=== PATIENT | female | born 1975 | race Caucasian/White ===

== ENCOUNTER 2017-05-11 07:22 | Day surgery (SDC) | payer OTHER ==
[2017-05-08 17:10] VITALS: BMI 39.1
[2017-05-11] MEDS ORDERED: MIDAZOLAM HCL 2 MG/2 ML SINGLE DOSE VIAL ONE (08:04)
[2017-05-11] MEDS ORDERED: LEVOFLOXACIN 500 MG IVPB 500 MG/100 ML BAG IVPB ONE (09:03)
[2017-05-11] MEDS ORDERED: LIDOCAINE HCL/PF 2% SDV 5ML VIAL ONE (09:22)
[2017-05-11] MEDS ORDERED: oxyCODONE HCL 5 MG TABLET PO PRN (10:05)
[2017-05-11] MEDS ORDERED: PROMETHAZINE HCL 25 MG/1 ML VIAL IVPUSH PRN (10:05)
[2017-05-11] MEDS ORDERED: ONDANSETRON 4 MG/2 ML VIAL IVPUSH PRN (10:05)
--- NOTE | 2017-05-11 10:09 | OP ---
Operative Note - Note: Operative Date: 05/11/17 Pre-Operative Diagnosis: gross hematuria/left ureteral stone/left hydronephrosis Operation: cystoscopy/bilateral retrograde pyelogram/left ureteroscopy Findings: passed left ureteral stone/no evidence of neoplastic process Surgeon: Vinod Guerrero Anesthesia: General
[2017-05-11] MEDS ORDERED: LACTATED RINGERS SOLUTION 1,000 ML IV SCH (10:15)
[2017-05-11 11:01] VITALS: TEMP 98.5
[2017-05-11] MEDS ORDERED: oxyCODONE HCL 5 MG TABLET ONE (11:16)
--- NOTE | 2017-05-11 11:32 | OP ---
DATE OF OPERATION: 05/11/2017 PREOPERATIVE DIAGNOSIS: Gross hematuria with left ureteral stone. PROCEDURE: Cystoscopy, bilateral retrograde pyelogram, left ureteroscopy. SURGEON: Pooja Boswell MD ANESTHESIA: General. POSTOPERATIVE DIAGNOSIS: Gross hematuria with left ureteral stone. DESCRIPTION OF PROCEDURE: The patient has a history of gross hematuria. A CAT scan revealed a distal left ureteral stone. The patient describes bilateral renal colic. She denies any passage of stone. The patient had 2 episodes of gross hematuria not associated with pain. The patient had a negative urine cytologies and an office cystoscopy, which was unremarkable. The patient is brought in the operating room today for a bilateral retrograde pyelogram. The patient was placed in the supine position on the operating room table. General anesthesia was administered as was Levaquin 500 mg intravenously. The patient was then placed in the dorsal lithotomy position and prepped and draped in the usual sterile manner. Cystoscopy was performed. 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 The urine ureteral orifice appears normal. The left ureteral orifice appears edematous and abnormal. An open-ended catheter is attempted to be placed in the distal ureteral orifice, however, without success. Ureteroscopy was utilized, and with ureteroscopic guidance, a wire was passed into the left ureteral orifice. An open-ended catheter is then placed over the wire. It must be noted there was evidence of edema in the distal ureteral segment consistent with a recent stone passage. There were also small fragments less than 0.5 mm of stone debris noted. A retrograde pyelogram shows no evidence of filling defect or hydronephrosis. At this point, the open-ended catheter is removed. The right ureteral orifice is then intubated, and a retrograde pyelogram was performed, which is normal on the right side. No evidence of obstructing stone or neoplasm is noted bilaterally. There is evidence of a recent stone passage as seen by the edema of the left ureteral orifice. The patient tolerated the procedure very well. No complications were noted. DISPOSITION: Patient to recovery room. POOJA BOSWELL M.D. [id number]
[2017-05-11 12:23] VITALS: BP 144/80; PULSE 79
== END 2017-05-11 12:23 | disposition home or self-care (01) ==
LOC: JASU-SURG 07:22
PROVIDERS: ATTEND Urology
PROC: BT14ZZZ Fluoroscopy of Kidneys, Ureters and Bladder (ICD-10-PCS; principal; 2017-05-11 09:00)
DX: N20.1 Calculus of ureter (principal); R31.0 Gross hematuria
CPT/HCPCS: 76000-TC; 84703; 94760

== ENCOUNTER 2017-12-28 12:43 | Day surgery (SDC) | payer OTHER ==
[2017-12-28 13:12] VITALS: TEMP 97.7
[2017-12-28] MEDS ORDERED: MIDAZOLAM HCL 2 MG/2 ML SINGLE DOSE VIAL ONE (13:30)
--- NOTE | 2017-12-28 15:26 | OP ---
Operative Note - Note: Operative Date: 12/28/17 Pre-Operative Diagnosis: Left kidney stone Operation: Left ESWL Findings: 6mm lower pole left kidney stone Post-Operative Diagnosis: Same as Pre-op Surgeon: Vinod Guerrero (no complication) Anesthesia: Fractional
[2017-12-28 16:37] VITALS: BP 113/77; PULSE 70
--- NOTE | 2017-12-28 23:43 | OP ---
DATE OF OPERATION: 12/28/2017 PREOPERATIVE DIAGNOSIS: Left renal stone. POSTOPERATIVE DIAGNOSIS: Left renal stone. PROCEDURE: Left extracorporeal shock wave lithotripsy. ATTENDING: Pooja Guerrero M.D. ANESTHESIA: Fractional. OPERATION: Patient was brought in the operating room, placed in a supine position on the operating room table. Ultrasonography and fluoroscopy were performed. A 6-mm left lower pole stone was identified. At this point, fractional anesthesia and preoperative antibiotics were administered. Shock wave lithotripsy was then started. 3000 impulses at 18 joules of power was administered to the stone with excellent fragmentation under real time fluoroscopy and ultrasonography. There were no complications noted. The patient tolerated the procedure very well. DISPOSITION: Disposition of the patient to the recovery room. POOJA BOSWELL M.D. [id number]
== END 2017-12-28 16:15 | disposition home or self-care (01) ==
LOC: JASU-SURG 12:43
PROVIDERS: ATTEND Urology
PROC: 0TF4XZZ Fragmentation in Left Kidney Pelvis, External Approach (ICD-10-PCS; principal; 2017-12-28 13:15)
DX: N20.0 Calculus of kidney (principal)
CPT/HCPCS: 84703

== ENCOUNTER 2019-02-06 20:07 | Observation (INO) | payer OTHER ==
[2019-02-06 20:18] VITALS: BMI 39.1
--- NOTE | 2019-02-06 21:06 | PDOC ---
History of Present Illness - General Chief Complaint: Chest Pain Stated Complaint: CHEST PAIN Time Seen by Provider: 02/06/19 21:05 History Source: Patient Exam Limitations: No Limitations - History of Present Illness Initial Comments: 02/06/19 21:45 43 yo F pmh SLE, RA, IBS, h/o renal stones presenting with 2 days of constant nonradiating left sided chest pain and a week of left flank pain with nausea and chills. Chest pain started yesterday morning resolves at night and comes back in the morning; improves with ibuprofen. Denies SOB. Endorses some mild positional lightheadedness. Left flank pain similar to her prior renal stones which have been treated w/ lithotripsy. Endorsing a week of chills and diaphoresis. Denies dysuria, other abd pain, vomiting. No trauma. PO tolerant. PMH as above; h/o sle nephritis does not take her meds for stated conditions LMP 2 wks ago, not sexually active NKDA no PCP Past History - Past Medical History Allergies/Adverse Reactions: Allergies Allergy/AdvReac Type Severity Reaction Status Date / Time No Known Allergies Allergy Verified 12/28/17 13:17 Home Medications: Ambulatory Orders Sertraline HCl [Zoloft] 100 mg PO DAILY 05/08/17 Ibuprofen 600 mg PO PRN PRN 12/28/17 Anemia: No Asthma: No Cancer: No Cardiac Disorders: No CVA: No COPD: No CHF: No Dementia: No Diabetes: No GI Disorders: Yes (IBS) Disorders: No HTN: No Hypercholesterolemia: No Liver Disease: No Seizures: No Thyroid Disease: No - Surgical History Abdominal Surgery: No Appendectomy: No Cardiac Surgery: No Cholecystectomy: No Lung Surgery: No Neurologic Surgery: No Orthopedic Surgery: No - Immunization History Immunization Up to Date: Yes - Suicide/Smoking/Psychosocial Hx Smoking Status: Yes Smoking History: Former smoker Years of Tobacco Use: 21 Have you smoked in the past 12 months: Yes Number of Cigarettes Smoked Daily: 5 If you are a former smoker, when did you quit?: Thursday Information on smoking cessation initiated: Yes Hx Alcohol Use: No Drug/Substance Use Hx: No Substance Use Type: None Hx Substance Use Treatment: No *Physical Exam - Vital Signs Last Vital Signs Temp Pulse Resp BP Pulse Ox 97.4 F L 93 H 20 176/104 H 96 02/06/19 20:11 02/06/19 20:11 02/06/19 20:11 02/06/19 20:11 02/06/19 20:11 - Physical Exam Comments: 02/06/19 21:45 GEN: Moderately distressed from pain, nontoxic appearing HEENT: NC/AT, EOMI, PERRLA, CN II-XII intact. MMM CV: + reproducible pain on palpation of left chest; no fractures or deformities. S1/S2, RRR, no m/r/g LUNG: CTAB, no wheezes, crackles, rales, rhonchi. GI: +CVAT on left side. Endorses left flank pain w/o guarding, rebound, or grimacing; otherwise soft, ndnt, +BS. no masses. EXTREMITIES: 2+ distal pulses. No LE edema. No obvious deformities of all extremities. NEURO: AAOx3, moving all extremities well. ED Treatment Course - LABORATORY CBC & Chemistry Diagram: 02/06/19 21:20 02/06/19 21:20 Medical Decision Making - Medical Decision Making 02/06/19 21:33 43 yo F with SLE, RA, IBS and h/o renal stones presenting with 2 days of reproducible nontraumatic chest pain that resolves at night and improved with ibuprofen and a week of left sided flank pain with nausea and chills which is similar to her previous episodes of renal stone. Exam significant for L CVAT and reproducible chest pain on palpation. DDx - costrochondritis, anxiety, ACS. Given pt's autoimmune hx and not on meds considered autoimmune pericarditis, Ao dissection, ACS but these are less likely given the symptomatology. UTI, pyelonephritis, renal stone. Chest pain and flank pain - CBC, CMP, cardiac - UA/UC, UPT - EKG, CXR - consider CT a/p - pain ctrl w/ tylenol given h/o sle nephritis 02/07/19 00:41 after receiving SLNTG, tylenol, and morphine - the patient was improved and BP dropped but reassessment found breakthrough pain despite morphine - added toradol - CT found no renal or bladder stones or obstructive uropathy. It did find mesenteric haziness that is possibly mesenteritis or edema. 02/07/19 00:55 Repeat BP 133/85 //admitted to medicine *DC/Admit/Observation/Transfer Diagnosis at time of Disposition: Flank pain, Atypical chest pain - Discharge Dispostion Decision to Admit order: Yes - Referrals - Patient Instructions - Post Discharge Activity
[2019-02-06] MEDS ORDERED: ACETAMINOPHEN 1000 MG/100 ML VIAL (NON FORMULARY) IVPB ONE (21:21)
[2019-02-06] MEDS ORDERED: ACETAMINOPHEN INJECTION 100 ML IVPB ONE (21:28)
[2019-02-06 21:49] LABS: BASO % 0.6 % (0-2.0); EOS % 1.8 % (0-4.5); HEMATOCRIT 43.2 % (32.4-45.2); HEMOGLOBIN 14.3 GM/dL (10.7-15.3); LYMPH % 19.6 % (8-40); MCH 25.9 pg (25.7-33.7); MCHC 33.1 g/dl (32.0-36.0); MEAN CELL VOLUME 78.2 fl (80-96); MONO % 6.9 % (3.8-10.2); NEUT % 71.1 % (42.8-82.8); PLATELET COUNT 158 K/MM3 (134-434); RBC 5.52 M/mm3 (3.60-5.2); RDW 15.4 % (11.6-15.6); WHITE BLOOD COUNT 11.5 K/mm3 (4.0-10.0)
[2019-02-06] MEDS ORDERED: NITROGLYCERIN SUBLINGUAL 1/150 0.4 MG TAB SL ONE ×2 (22:00→22:02)
[2019-02-06] MEDS ORDERED: morphine CARPU-JECT 2 MG/1 ML DISP.SYRIN IVPUSH ONE (22:01)
[2019-02-06] MEDS ORDERED: ASPIRIN 81 MG CHEWABLE TABLETS PO ONE (22:02)
[2019-02-06] MEDS ORDERED: ASPIRIN 81 MG CHEWABLE TABLETS ONE (22:07)
[2019-02-06] MEDS ORDERED: LOSARTAN POTASSIUM 50 MG TABLET (FP) PO ONE (22:07)
[2019-02-06] MEDS ORDERED: MORPHINE SULFATE 2 MG/ML VIAL ONE (22:07)
[2019-02-06] MEDS ORDERED: LOSARTAN POTASSIUM 50 MG TABLET (FP) ONE (22:08)
[2019-02-06] MEDS ORDERED: NITROGLYCERIN SUBLINGUAL 1/150 0.4 MG TAB ONE (22:08)
[2019-02-06 22:30] LABS: ALBUMIN 4.2 g/dl (3.4-5.0); BILIRUBIN,TOTAL 0.4 mg/dL (0.2-1); BLOOD UREA NITROGEN 10.1 mg/dL (7-18); CALCIUM 9.2 mg/dL (8.5-10.1); CREATININE 0.7 mg/dL (0.55-1.3); POTASSIUM 3.7 mmol/L (3.5-5.1); TOT PROT 8.4 g/dl (6.4-8.2)
[2019-02-06 22:57] LABS: EPI CELLS 4.2 /HPF (0-5/HPF); HYALINE CASTS 6 /lpf (0-8); URINE APPEARANCE CLEAR; URINE BILIRUBIN NEGATIVE (NEGATIVE); URINE COLOR YELLOW; URINE GLUCOSE (UA) NEGATIVE (NEGATIVE); URINE KETONE TRACE (NEGATIVE); URINE LEUK ESTERASE NEGATIVE (NEGATIVE); URINE NITRITE NEGATIVE (NEGATIVE); URINE PROTEIN 1+ (NEGATIVE); URINE RBC 7 /hpf (0-4); URINE WBC 1 /hpf (0-5)
--- NOTE | 2019-02-06 23:46 | PDOC ---
Documentation entered by Kareem Bocanegra SCRIBE, acting as scribe for Kathryn Padilla MD. Kathryn Padilla MD: This documentation has been prepared by the Daljit howard Daniel, SCRIBE, under my direction and personally reviewed by me in its entirety. I confirm that the documentation accurately reflects all work, treatment, procedures, and medical decision making performed by me. Attending Attestation - Resident Resident Name: Shahriar Chavez - ED Attending Attestation I have performed the following: I have examined & evaluated the patient, The case was reviewed & discussed with the resident, I agree w/resident's findings & plan - HPI HPI: 02/06/19 21:27 The patient is a 43 year old female with a past medical history of lupus, IBS, kidney stones, and rheumatoid arthritis here today for evaluation of chest pain and flank pain. The patient reports that her chest pain started 2 days ago and describes it as left sided, crampy, and alleviated with ibuprofen and sleep. She also notes left flank pain which she states feels like her kidney stones, nausea, diaphoresis, and 6 episodes of loose stool. Patient denies headache, lightheadedness. Denies fever, chills. Denies shortness of breath. Denies vomiting. Allergies: NKA Family history: HTN - Physicial Exam PE: 02/06/19 21:27 GENERAL: Awake, alert, and fully oriented, in no acute distress HEAD: No signs of trauma EYES: PERRLA, EOMI, sclera anicteric, conjunctiva clear ENT: Auricles normal inspection, hearing grossly normal, nares patent, oropharynx clear without exudates. Moist mucosa NECK: Normal ROM, supple, no lymphadenopathy, JVD, or masses LUNGS: Breath sounds equal, clear to auscultation bilaterally. No wheezes, and no crackles HEART: Regular rate and rhythm, normal S1 and S2, no murmurs, rubs or gallops ABDOMEN: Soft, nontender, normoactive bowel sounds. No guarding, no rebound. No masses EXTREMITIES: Normal range of motion, no edema. No clubbing or cyanosis. No cords, erythema, or tenderness NEUROLOGICAL: Cranial nerves II through XII grossly intact. Normal speech, normal gait SKIN: Warm, Dry, normal turgor, no rashes or lesions noted. - Medical Decision Making 02/06/19 22:06 right arm BP is 173/113 left arm BP is 191/110 Pt given 1SL NTG; we will repeat BP; she is getting cxr ofirmev given; pt will receive morphine 2mg and another SLNTG as well as 02/06/19 22:09 CXR shows normal heart and mediastinum. 02/06/19 23:36 Pt feeling vastly improved with morphine and meds. 02/06/19 23:49 Pt has 140s over 80s 02/07/19 00:17 Patient Name: SHON GAYLE THIS IS A PRELIMINARY REPORT FROM [facility] DATE OF SERVICE: 2019-02-06 23:20:31 IMAGES: 518 EXAM: CT ABDOMEN AND PELVIS WITHOUT CONTRAST No nephrolithiasis, ureterolithiasis or obstructive uropathy. No bladder calculi. Faint haziness central mesenteric fat, possibly mesenteritis or edema. Unremarkable pancreas and gallbladder. No bowel obstruction, colitis, or free air. Normal appendix. Hepatosplenomegaly. Steatosis liver. Negligible physiologic free fluid cul-de-sac. Small umbilical and left inguinal region hernias containing fat. Small bone island S1. 02/07/19 03:23 Pt continued to have abd pain and left flank pain. SHe will be admmitted as she has abd pain and elevated WBC and she has CT that shows mesenteritis. Pt also has fat hernias that may be causing pain. Heart Score/ECG Review - ECG Intrepretation Rhythm: Regular Rhythm - [place]: Normal - P and CA Prominent R with upright T in V1 (true posterior IL): No Delta Wave(s) Present: No WPW: No - ST and T Early Repolarization: No Non Specific ST-T Wave changes: No Flattened T Waves: No Prolonged Q-T Interval: No
[2019-02-07] MEDS ORDERED: KETOROLAC TROMETHAMINE 30 MG/1 ML VIAL IVPUSH ONE (00:07)
[2019-02-07] MEDS ORDERED: KETOROLAC TROMETHAMINE 30 MG/1 ML VIAL ONE (00:20)
[2019-02-07] MEDS ORDERED: ONDANSETRON 4 MG/2 ML VIAL IVPUSH PRN (01:35)
[2019-02-07] MEDS ORDERED: ACETAMINOPHEN 325 MG TABLET (FP) PO PRN (01:35)
--- NOTE | 2019-02-07 02:00 | PN ---
Teaching Attending Note Name of Resident: Elizabeth Lerma ATTENDING PHYSICIAN STATEMENT I saw and evaluated the patient. I reviewed the resident's note and discussed the case with the resident. I agree with the resident's findings and plan as documented. Seen and examined; please refer to resident note for further historical information. Briefly, this is a 43 y/o female presenting to the ER with a CC of flank pain, s/p recent lithotripsy fo 6mm stone with Dr. Guerrero. She is afebrile and hemodynamically stable; UA is negative, mild leukocytosis, normal chemistry, no fever. Initially hypertensive but I am told she went hypotensive after morphine and nitro were given (not documented). Has not followed with MD in years; used to see Dr. Velasquez for her lupus. CT shows slight mesenteritis vs. edema along with hepatosplenomegaly but she has normal LFTs. VS, labs, imaging reviewed NAD, AAO, resting in bed NC AT EOMI PERRLA RRR s1/2 Flank pain to percussion, ND +BS CN2-12 wnl, no fnd EKG reviewed CXR reviewed CT prelim reviewed; final report pending. Per prelim, she has edema vs. mesenteritis located centrally alongside hsm CXR reviewed ASSESSMENT AND PLAN: Patient presents with flank pain and ?chest pain; negative workup aside from WBC 11 and mesenteritis vs. edema with hepatosplenomegaly in a lupus patient. # Flank Pain -Similar to her hx renal stones but no stones on exam, negative UA. # Chest Pain -EKG reviewed; monitor tele. Troponin negative; can repeat. Echo ordered # Leukocytosis -Given 1g empiric ceftriaxone; could be reactive. Cultures, etc. # Mesenteritis vs. Edema -Checking lactate and CPK; sclerosing mesenteritis can be seen in patients with AI disease such as Lupus but these imaging findings are subtle compared. Slight association with IgG4 so can consider checking; no obstruction on CT. Followup final report. # Hepatosplenomegaly -Followup final CT report; consider GI consultation. Check hepatitis pannel # Hx Lupus -Saw Dr. Velasquez in 2011; reviewed. Negative CORONA in past, no current meds. No signs of nephritis, no signs of vasculitis. Checking ESR/CRP. Monitor.
--- NOTE | 2019-02-07 02:12 | HP ---
CHIEF COMPLAINT: Chest pain and L flank pain PCP: None HISTORY OF PRESENT ILLNESS: Patient is a 43 year old female with PMH of SLE, rheumatoid arthritis, IBS, uncontrolled HTN, kidney stones, depression who presents today with L flank pain and chest pain. She reports that her chest pain is substernal and began 2 days ago. It is constant, stabbing, and non-radiating, but alleviated with ibuprofen and sleep. She denies any associated palpitations or SOB. Her flank pain began 2 weeks ago and has been associated with nausea, diaphoresis, chills , and urinary frequency and urgency. She denies any abdominal pain, vomiting, hematuria, or leg swelling. Pt has had kidney stones in the past, treated with lithotripsy x2. Last time was one year ago. She notes that her current symptoms feel similar to her prior stones. Of note, pt has been lost to follow up for her chronic conditions. She was previously on steroids, cellcept, and plaquenil for her SLE as well as losartan for HTN. However, she no longer sees any of her physicians and does not take any medications except Zoloft for depression. Pt states that she has not had an SLE or RA outbreak for several years. Her outbreaks typically include swelling and aching of her hands, feet, and joints, diaphoresis, fatigue, and diffuse rash. ER course was notable for: (1) CT abd: no nephrolithiasis, ureterolithiasis, bladder calculi; faint haziness central mesenteric fat, possible mesenteritis or edema (2) EKG: NSR, no ischemic changes (3) BP: 176/104, given 100mg losartan, asa 162mg, and nitro SL x2 --> BP: 134/ 83 and CP resolved Recent Travel: Denies PAST MEDICAL HISTORY: SLE Rheumatoid arthritis IBS Renal stones with lithotripsy x2 Depression PAST SURGICAL HISTORY: D&C Social History: Smoking: denies Alcohol: denies Drugs: denies Family History: Father: DM, gastric cancer Mother: HTN Allergies No Known Allergies Allergy (Verified 12/28/17 13:17) HOME MEDICATIONS: Home Medications Medication Instructions Recorded Sertraline HCl [Zoloft] 100 mg PO DAILY 05/08/17 Ibuprofen 600 mg PO PRN PRN 12/28/17 REVIEW OF SYSTEMS CONSTITUTIONAL: diaphoresis, chills Absent: fever, generalized weakness, malaise, loss of appetite, weight change HEENT: Absent: rhinorrhea, nasal congestion, throat pain, throat swelling, difficulty swallowing, mouth swelling, ear pain, eye pain, visual changes CARDIOVASCULAR: chest pain Absent: syncope, palpitations, irregular heart rate, lightheadedness, peripheral edema RESPIRATORY: Absent: cough, shortness of breath, dyspnea with exertion, orthopnea, wheezing, stridor, hemoptysis GASTROINTESTINAL: nausea Absent: abdominal pain, abdominal distension, vomiting, diarrhea, constipation, melena, hematochezia GENITOURINARY: frequency, urgency, flank pain Absent: dysuria, hesitancy, hematuria, genital pain MUSCULOSKELETAL: Absent: myalgia, arthralgia, joint swelling, back pain, neck pain SKIN: Absent: rash, itching, pallor HEMATOLOGIC/IMMUNOLOGIC: Absent: easy bleeding, easy bruising, lymphadenopathy, frequent infections ENDOCRINE: Absent: unexplained weight gain, unexplained weight loss, heat intolerance, cold intolerance NEUROLOGIC: Absent: headache, focal weakness or paresthesias, dizziness, unsteady gait, seizure, mental status changes, bladder or bowel incontinence PSYCHIATRIC: Absent: anxiety, depression, suicidal or homicidal ideation, hallucinations. PHYSICAL EXAMINATION Vital Signs - 24 hr 02/06/19 02/07/19 20:11 00:55 Temperature 97.4 F L Pulse Rate 93 H Pulse Rate [ 72 Left] Respiratory 20 15 Rate Blood Pressure 176/104 H Blood Pressure 133/85 [Left Arm] O2 Sat by Pulse 96 99 Oximetry (%) GENERAL: Awake, alert, and fully oriented, in no acute distress. HEAD: Normal with no signs of trauma. EYES: Pupils equal, round and reactive to light, extraocular movements intact, sclera anicteric, conjunctiva clear. No lid lag. EARS, NOSE, THROAT: Ears normal, nares patent, oropharynx clear without exudates. Moist mucous membranes. NECK: Normal range of motion, supple without lymphadenopathy, JVD, or masses. LUNGS: Breath sounds equal, clear to auscultation bilaterally. No wheezes, and no crackles. No accessory muscle use. HEART: Regular rate and rhythm, normal S1 and S2 without murmur, rub or gallop. Tenderness to palpation in substernal area. ABDOMEN: Mild left-sided tenderness, soft, not distended, normoactive bowel sounds, no guarding, no rebound, no masses. No hepatomegaly or splenomegaly. MUSCULOSKELETAL: Normal range of motion at all joints. No bony deformities or tenderness. Left CVA tenderness. UPPER EXTREMITIES: 2+ pulses, warm, well-perfused. No cyanosis. No clubbing. No peripheral edema. LOWER EXTREMITIES: 2+ pulses, warm, well-perfused. No calf tenderness. No peripheral edema. NEUROLOGICAL: Cranial nerves II-XII intact. Normal speech. Normal gait. PSYCHIATRIC: Cooperative. Good eye contact. Appropriate mood and affect. SKIN: Warm, dry, normal turgor, no rashes or lesions noted, normal capillary refill. Laboratory Results - last 24 hr CBC, BMP 02/06/19 21:20 02/06/19 21:20 ASSESSMENT/PLAN: Patient is a 43 year old female with PMH of SLE, rheumatoid arthritis, IBS, uncontrolled HTN, kidney stones, depression who presents today with L flank pain and chest pain. #Rule out ACS EKG: NSR, no ischemic changes Trending serial troponins - neg Given 0.4mg nitro SL x2, 162mg asa, morphine in ED, pain resolved Echo ordered, f/u in am Cont IV tylenol Q4H prn for pain control and zofran Q6H prn for nausea #Left flank pain Sx similar to her past renal stones CT abd: no nephrolithiasis, ureterolithiasis, bladder calculi; faint haziness central mesenteric fat, possible mesenteritis or edema UA: 1+ protein, trace ketones, otherwise unremarkable F/u urine cx Cont IV tylenol Q4H prn for pain control and zofran Q6H prn for nausea #Leukocytosis Possibly reactive, pt is afebrile with no other signs of infection F/u urine cx Given 1gm cefriaxone empirically #Mesenteritis F/u final CT abd report F/u lactate and CPK #SLE/RA Saw Dr. Velasquez in the past F/u ESR and CRP In the past, took steroids, plaquenil, cellcept. Consider restarting #HTN Given 100mg losartan in ED Cont at 50mg losartan daily and monitor BP #FEN No standing fluids for now Regular diet #DVT ppx Heparin SQ TID #Dispo Place on obs overnight Visit type - Emergency Visit Emergency Visit: Yes ED Registration Date: 02/07/19 Care time: The patient presented to the Emergency Department on the above date and was hospitalized for further evaluation of their emergent condition. - New Patient This patient is new to me today: Yes Date on this admission: 02/08/19 - Critical Care Critical Care patient: No ATTENDING PHYSICIAN STATEMENT I saw and evaluated the patient. I reviewed the resident's note and discussed the case with the resident. I agree with the resident's findings and plan as documented. SUBJECTIVE: OBJECTIVE: ASSESSMENT AND PLAN:
[2019-02-07] MEDS: HEPARIN NA (PORCINE) 5,000 UNITS/ML 1ML VIAL SQ SCH ×2 (06:47→14:30)
[2019-02-07 06:51] LABS: BASO % 0.6 % (0-2.0); HEMATOCRIT 41.2 % (32.4-45.2); HEMOGLOBIN 13.9 GM/dL (10.7-15.3); LYMPH % 26.8 % (8-40); MCH 26.5 pg (25.7-33.7); MCHC 33.7 g/dl (32.0-36.0); MEAN CELL VOLUME 78.7 fl (80-96); MEAN PLT VOLUME 8.3 fl (7.5-11.1); MONO % 6.8 % (3.8-10.2); NEUT % 62.8 % (42.8-82.8); PLATELET COUNT 132 K/MM3 (134-434); RBC 5.24 M/mm3 (3.60-5.2); RDW 15.3 % (11.6-15.6); WHITE BLOOD COUNT 9.8 K/mm3 (4.0-10.0)
[2019-02-07] MEDS ORDERED: ACETAMINOPHEN 325 MG TABLET (FP) ONE (06:51)
[2019-02-07 07:24] LABS: ALBUMIN 3.9 g/dl (3.4-5.0); BILIRUBIN,TOTAL 0.5 mg/dL (0.2-1); BLOOD UREA NITROGEN 8.8 mg/dL (7-18); CALCIUM 8.8 mg/dL (8.5-10.1); CREATININE 0.6 mg/dL (0.55-1.3); POTASSIUM 3.7 mmol/L (3.5-5.1); TOT PROT 7.9 g/dl (6.4-8.2)
[2019-02-07] MEDS ORDERED: LOSARTAN POTASSIUM 50 MG TABLET (FP) PO SCH (10:00)
--- NOTE | 2019-02-07 11:15 | EKG ---
Test Reason : Blood Pressure : / mmHG Vent. Rate : 080 BPM Atrial Rate : 080 BPM P-R Int : 146 ms QRS Dur : 078 ms QT Int : 394 ms P-R-T Axes : 030 007 032 degrees QTc Int : 454 ms NORMAL SINUS RHYTHM NORMAL ECG WHEN COMPARED WITH ECG OF 27-JUN-2011 14:47, NO SIGNIFICANT CHANGE WAS FOUND Confirmed by JANNIE GOODMAN MD ([id number]) on 02/07/2019 11:15:29 AM Referred By: Confirmed By:JANNIE GOODMAN MD
--- NOTE | 2019-02-07 11:41 | PN ---
Teaching Attending Note Name of Resident: Terry Valderrama ATTENDING PHYSICIAN STATEMENT I saw and evaluated the patient. I reviewed the resident's note and discussed the case with the resident. I agree with the resident's findings and plan as documented. SUBJECTIVE:some mild L flank tenderness but overall improved since arrival. develop CP after having L flank pain. had similar pain in the past when she had kidney stones. had lithotripsy in the past. has been off all her medications for 2-3years due to insurance issues. denies Cp, SOB, fever, chills, N/V/C/D, or hematuria OBJECTIVE: Last Vital Signs Temp Pulse Resp BP Pulse Ox 97.5 F L 71 18 136/85 96 02/07/19 10:18 02/07/19 10:18 02/07/19 10:18 02/07/19 10:18 02/07/19 10:18 General NAD CV S1 S2 RRR no murmur/rub/gallop Lungs CTA B/L no wheezing/rlaes/rhonchi Abdomen soft NT/ND + L CVA tenderness no flank pain obese Extremities no pedal edema ASSESSMENT AND PLAN: 43yo F wtih PMH SLE, RA, ibs, nephrolithaosis and depression presented to the ER with L flank pain and CP and was found ot have HTN urgency 1. L flank pain- pain mostly resolved and controlled with tylenol. CT imaging negative for nephrotlithasis or other acute pathology. pain has mostly resolved at this time and controlled with tylenol. advised dietary changes and increasing water intake 2. CP-liekly compensatory pain vs due to HTN. cardiac enzymes neg x2. echo done. will f/u results 3. HTN urgency- given losartan and now controlled. recommended dietary changes and continuation of medications 4. SLE- long converstaion about need to f/u and re-start medications. hesitant to start them at this time as pt should first establish primary care and have a check up before starting these agents. 5, d/c home if echo is normal.
--- NOTE | 2019-02-07 12:23 | ECHO ---
Name: SHON GAYLE Exam:Adult Echocardiogram Study Date: 02/07/2019 09:16 AM Age: 43 yrs Reason For Study: R/O ACS Height: 67 in Weight: 250 lb BSA: 2.2 m2 MMode/2D Measurements & Calculations IVSd: 0.84 cm Ao root diam: 2.7 cm LVIDd: 5.0 cm LA dimension: 3.7 cm LVIDs: 3.3 cm LVPWd: 0.79 cm EDV(Teich): 120.9 ml LVOT diam: 2.1 cm ESV(Teich): 43.7 ml Doppler Measurements & Calculations MV E max robert: 57.3 cm/sec Ao V2 max: 107.7 cm/sec MV A max robert: 64.7 cm/sec Ao max P.7 mmHg MV E/A: 0.89 Ao V2 mean: 80.1 cm/sec MV dec time: 0.22 sec Ao mean P.9 mmHg Ao V2 VTI: 23.1 cm LG(I,D): 2.0 cm2 AI P1/2t: 751.5 msec LG(V,D): 2.1 cm2 AI max robert: 412.3 cm/sec LV V1 max P.7 mmHg AI max P.0 mmHg LV V1 mean P.74 mmHg AI dec slope: 160.7 cm/sec2 LV V1 max: 64.5 cm/sec LV V1 mean: 38.8 cm/sec LV V1 VTI: 13.4 cm SV(LVOT): 46.3 ml TR max robert: 226.0 cm/sec TR max P.4 mmHg Med Peak E' Robert: 5.1 cm/sec Med E/e': 11.3 Lat Peak E' Robert: 7.9 cm/sec Lat E/e': 7.3 Procedure A complete two-dimensional transthoracic echocardiogram was performed (2D, M-mode, Doppler and color flow Doppler). Left Ventricle The left ventricle is normal in size. Left ventricular systolic function is normal. Ejection Fraction = 60- 65%. Grade I diastolic dysfunction, (abnormal relaxation pattern). Ratio E/E'= 11. No regional wall m otion abnormalities noted. Right Ventricle The right ventricle is normal size. The right ventricular systolic function is normal. Atria The left atrial size is normal. Right atrial size is normal. Mitral Valve The mitral valve is normal in structure and function. There is mild mitral regurgitation. Tricuspid Valve The tricuspid valve is normal in structure and function. No tricuspid regurgitation. Aortic Valve There is mild aortic sclerosis.;. Mild aortic regurgitation. Pulmonic Valve The pulmonic valve is not well visualized. Great Vessels The aortic root is normal size. Pericardium/Pleura There is no pericardial effusion. Interpretation Summary The left ventricle is normal in size. Left ventricular systolic function is normal. No regional wall motion abnormalities noted. Ejection Fraction = 60-65%. Grade I diastolic dysfunction, (abnormal relaxation pattern). Ratio E/E'= 11 The right ventricular systolic function is normal. The left atrial size is normal. Right atrial size is normal. There is mild mitral regurgitation. There is mild aortic sclerosis. Mild aortic regurgitation. There is no pericardial effusion. Previous study is not available for comparison Luke Vicente MD 02/07/2019 12:23 PM
[2019-02-07 14:18] VITALS: BP 147/106; PULSE 87; TEMP 98
--- NOTE | 2019-02-07 16:58 | DS ---
Physical Exam: SUBJECTIVE: 43 y/o F w PMH of SLE, RA, IBS, HTN, nephrolithiais, major depression, whom presented to ED with LEFT flank pain and chest pain. CP was substernal, 2 days in duration, constant, stabbing, non-radiating, and alleviated with ibuprofen and sleep. Flank pain began 2 weeks prior to admission and was associated with nausea, diaphoresis, chills, and urinary frequency, and urgency. Pt has h/o nephrolithaisis treated w lithotripsy x2. Present symptoms of flank pain consistent with previous episodes. Pt not seeing PCP for medical conditions 2/2 to being on disability, losing employment-based insurance, and did not f/u on acquiring new providers. Pt experienced these symptoms 1 year ago. Pt states that she has not had an SLE or RA outbreak for several years. Her outbreaks typically include swelling and aching of her hands , feet, and joints, diaphoresis, fatigue, and diffuse rash. Pt given fluids, pain relief, and followed bed rest, which provided abatement of symptoms. OBJECTIVE: Vital Signs Temp Pulse Resp BP Pulse Ox 98.0 F 87 18 147/106 H 96 02/07/19 14:17 02/07/19 14:17 02/07/19 14:17 02/07/19 14:17 02/07/19 14:17 PHYSICAL EXAM GENERAL: The patient is awake, alert, and fully oriented, in no acute distress. HEAD: Normal with no signs of trauma. EYES: BOLIVAR, EMOI, sclera anicteric, conjunctiva clear. ENT: Ears normal, nares patent, oropharynx clear without exudates, moist mucous membranes. NECK: Trachea midline, full range of motion, supple. LUNGS: Breath sounds equal, clear to auscultation bilaterally, no wheezes, no crackles, no accessory muscle use. HEART: Regular rate and rhythm, S1, S2 without murmur, rub or gallop. ABDOMEN: Obese, soft, nontender, nondistended, normoactive bowel sounds, no guarding, no rebound, no hepatosplenomegaly, no masses. EXTREMITIES: 2+ pulses, warm, well-perfused, no edema. NEUROLOGICAL: Cranial nerves III through XII grossly intact. Normal speech, gait not observed. PSYCH: Normal mood, normal affect. SKIN: Warm, dry, normal turgor, no rashes or lesions noted. LABS Laboratory Results - last 24 hr 02/06/19 02/06/19 02/06/19 21:20 21:20 21:20 WBC 11.5 H RBC 5.52 H Hgb 14.3 Hct 43.2 MCV 78.2 L MCH 25.9 MCHC 33.1 RDW 15.4 Plt Count 158 D MPV 8.0 D Absolute Neuts (auto) 8.2 H Neutrophils % 71.1 Lymphocytes % 19.6 Monocytes % 6.9 Eosinophils % 1.8 Basophils % 0.6 Nucleated RBC % 0 ESR Sodium 138 Potassium 3.7 Chloride 104 Carbon Dioxide 27 Anion Gap 7 L BUN 10.1 Creatinine 0.7 Est GFR (CKD-EPI)AfAm 123.86 Est GFR (CKD-EPI)NonAf 106.87 Random Glucose 99 Calcium 9.2 Total Bilirubin 0.4 AST 17 ALT 23 Alkaline Phosphatase 76 Creatine Kinase 111 Troponin I < 0.02 C-Reactive Protein Total Protein 8.4 H Albumin 4.2 Urine Color Urine Appearance Urine pH Ur Specific Sumner Urine Protein Urine Glucose (UA) Urine Ketones Urine Blood Urine Nitrite Urine Bilirubin Urine Urobilinogen Ur Leukocyte Esterase Urine WBC (Auto) Urine RBC (Auto) Urine Casts (Auto) U Epithel Cells (Auto) Urine Bacteria (Auto) Urine HCG, Qual 02/06/19 02/06/19 02/07/19 22:45 22:45 02:13 WBC RBC Hgb Hct MCV MCH MCHC RDW Plt Count MPV Absolute Neuts (auto) Neutrophils % Lymphocytes % Monocytes % Eosinophils % Basophils % Nucleated RBC % ESR Sodium Potassium Chloride Carbon Dioxide Anion Gap BUN Creatinine Est GFR (CKD-EPI)AfAm Est GFR (CKD-EPI)NonAf Random Glucose Calcium Total Bilirubin AST ALT Alkaline Phosphatase Creatine Kinase Troponin I < 0.02 C-Reactive Protein Total Protein Albumin Urine Color Yellow Urine Appearance Clear Urine pH 6.0 Ur Specific Sumner 1.032 Urine Protein 1+ H Urine Glucose (UA) Negative Urine Ketones Trace H Urine Blood Negative Urine Nitrite Negative Urine Bilirubin Negative Urine Urobilinogen 1.0 Ur Leukocyte Esterase Negative Urine WBC (Auto) 1 Urine RBC (Auto) 7 Urine Casts (Auto) 6 U Epithel Cells (Auto) 4.2 Urine Bacteria (Auto) 52.0 Urine HCG, Qual Negative 02/07/19 02/07/19 02/07/19 06:00 06:00 06:00 WBC 9.8 RBC 5.24 H Hgb 13.9 Hct 41.2 MCV 78.7 L MCH 26.5 MCHC 33.7 RDW 15.3 Plt Count 132 L MPV 8.3 Absolute Neuts (auto) 6.2 Neutrophils % 62.8 Lymphocytes % 26.8 D Monocytes % 6.8 Eosinophils % 3.0 Basophils % 0.6 Nucleated RBC % 0 ESR 16 Sodium 138 Potassium 3.7 Chloride 105 Carbon Dioxide 26 Anion Gap 7 L BUN 8.8 Creatinine 0.6 Est GFR (CKD-EPI)AfAm 130.30 Est GFR (CKD-EPI)NonAf 112.42 Random Glucose 94 Calcium 8.8 Total Bilirubin 0.5 AST 16 ALT 22 Alkaline Phosphatase 68 Creatine Kinase 104 Troponin I C-Reactive Protein 0.9 H Total Protein 7.9 Albumin 3.9 Urine Color Urine Appearance Urine pH Ur Specific Sumner Urine Protein Urine Glucose (UA) Urine Ketones Urine Blood Urine Nitrite Urine Bilirubin Urine Urobilinogen Ur Leukocyte Esterase Urine WBC (Auto) Urine RBC (Auto) Urine Casts (Auto) U Epithel Cells (Auto) Urine Bacteria (Auto) Urine HCG, Qual HOSPITAL COURSE: Date of Admission:02/07/19 43 y/o F w PMH of SLE, RA, IBS, HTN, nephrolithiasis, major depression whom presented with LEFT flank pain and chest pain. Abd CT deonstrated NO nephrolithiasis, ureterolithiasis, bladder calculi w faint haziness central mesenteric fat, possible mesenteritis or edema. IV tylenol Q4H prn was given for pain control and zofran Q6H prn for nausea. EKG was NSR with no ischemic changes. Troponins were neg x2. BP was 176/104 and was given 100mg losartan, asa 162mg, and nitro then BP resolved 134/83. Next day, 07 Feb 2019, echo demonstrated Left flank pain symptoms during visit was similar to her past renal stones. CT abd was negative. UA significant for 1+ protein and trace ketones, otherwise unremarkable. Pt demonstrated a leukocytosis poss reactive. Pt was afebrile with no other signs of infection. In ED pt was given 1gm cefriaxone empirically. SLE/RA previously covered by Dr. Velasquez; she took steroids, plaquenil, cellcept. Pt given 50mg losartan for HTN. IMAGING 07 Feb 2019 ECHO Significant findings: - 65% Grade I diastolic dysfunction ratio E/E' = 11. No regional wall motions - Mild aortic sclerosis - Mild aortic regurg. [address] SPIRAL- RENAL-STONE No evidence of urinary tract calculi, obstructive uropathy or acute pathology within the abdomen or pelvis. CR CHEST PA & LAT 2 views of the chest reveal clear lungs, normal mediastinum and sharp angles. There are degenerative changes with wedging. Since 06/27/2011 there is no change of an adverse nature. Date of Discharge: 02/07/19 Terry Valderrama MD Minutes to complete discharge: 40 Discharge Summary Reason For Visit: ATYPICAL CHEST PAIN Current Active Problems Atypical chest pain (Acute) Flank pain (Acute) Depression (Chronic) Obesity (BMI 30-39.9) (Chronic) Rheumatoid arthritis (Chronic) SLE (systemic lupus erythematosus related syndrome) (Chronic) Condition: Improved - Instructions Diet, Activity, Other Instructions: YOUR VISIT You came to the hospital with back pain. Our tests showed that you may be experiencing symptoms related to your kidney stones. CAT scan was done which did not show any kidney stones. It is possible that your symptoms may be related to a kidney stone that is small enough to be detected on CAT scan. We encourage you to drink plenty of water and have a healthy diet. For your chest pain, several labs and imaging were done to check your heart, and were unremarkable. While in the hospital, your blood pressure was noted to be elevated. It is important that you take your medications regularly. A prescription of the Losartan will be sent to your pharmacy. Please take is as prescribed. It is important to follow up with your primary care doctor for repeat labs to check your kidney function in 1 week. MEDICATIONS 1. Losartan 50mg daily 2. You may Tylenol or Motrin as needed for pain. ADDITIONAL CARE It is important you follow up with a primary care provider 1 week from today. You can call to make an appointment with the [facility] resident clinic at the [facility]. If you would like to see Dr. Terry Valderrama MD, please ask for a Thursday morning appointment. You should follow up with a assembler [employer]. Please call your insurance to make an appointment. ADDITIONAL INFORMATION Please come to the emergency department if you feel short of breath, chest pain , loss of energy, unusual bleeding or any other significant symptoms. Referrals: [facility] [place] [Provider Group] Mariano Velasquez MD [Staff Physician] - Disposition: HOME - Home Medications Comprehensive Discharge Medication List: Ambulatory Orders Sertraline HCl [Zoloft] 100 mg PO DAILY 05/08/17 Ibuprofen 600 mg PO PRN PRN 12/28/17 Clonazepam 0.5 mg PO DAILY 02/07/19 Losartan Potassium [Cozaar -] 50 mg PO DAILY #30 tablet 02/07/19 This patient is new to me today: Yes Date on this admission: 02/07/19 Emergency Visit: Yes ED Registration Date: 02/07/19 Care time: The patient presented to the Emergency Department on the above date and was hospitalized for further evaluation of their emergent condition. Critical Care patient: No - Discharge Referral Referred to [facility] No ATTENDING PHYSICIAN STATEMENT I saw and evaluated the patient. I reviewed the resident's note and discussed the case with the resident. I agree with the resident's findings and plan as documented. SUBJECTIVE: OBJECTIVE: ASSESSMENT AND PLAN:
== END 2019-02-07 16:35 | disposition home or self-care (01) ==
LOC: JER 20:07 → JERBED 02-07 01:33
PROVIDERS: ADMIT Internal Medicine; ATTEND Internal Medicine
PROC: 3E0333Z Introduction of Anti-inflammatory into Peripheral Vein, Percutaneous Approach (ICD-10-PCS; principal; 2019-02-07)
PROC: 3E033NZ Introduction of Analgesics, Hypnotics, Sedatives into Peripheral Vein, Percutaneous Approach (ICD-10-PCS; 2019-02-07)
DX: R07.89 Other chest pain (principal); R10.9 Unspecified abdominal pain; F32.9 Major depressive disorder, single episode, unspecified; M32.9 Systemic lupus erythematosus, unspecified; M06.9 Rheumatoid arthritis, unspecified; K58.9 Irritable bowel syndrome, unspecified; D72.829 Elevated white blood cell count, unspecified; I10 Essential (primary) hypertension; K65.4 Sclerosing mesenteritis; R16.2 Hepatomegaly with splenomegaly, not elsewhere classified; E66.9 Obesity, unspecified; Z68.39 Body mass index [BMI] 39.0-39.9, adult; Z87.442 Personal history of urinary calculi; Z87.891 Personal history of nicotine dependence
CPT/HCPCS: 36415; 71046-TC-FY; 74176-TC; 80053; 81003; 82550; 84484; 84703; 85025; 85651; 86140; 87086; 93005; 93010; 93306-TC; 96374; 96375; 99285-25; G0378; J0131; J1644